=== PATIENT | male | born 1930 | race Caucasian/White ===

== ENCOUNTER → 2016-09-17 | Day surgery (SDC) | payer BC ==
[~2016-09-17] VITALS: Ht 165.1 cm; Wt 81.8 kg
[~2016-09-17] MED LIST: ASPEC81 PO; FINA5TAB PO; FLM4 PO; GLYCOPYRROLATE INJ 0.2 MG/ML VIAL ONE; LIDOCAINE HCL 2% 2 ML VIAL (20MG/ML) ONE; PHENYLEPHRINE 100MCG/ML 5ML SYR ONE; PROPOFOL IV EMULSION 10 MG/ML 20 ML VIAL IV ONE; TELM40TA11 PO; VERA240T20 PO
[2016-09-17 12:36] VITALS: Ht 165.1 cm; Wt 81.8 kg
--- NOTE | 2016-09-17 12:50 | Endo History and Physical ---
History & Physical Date of Service: September 17, 2016. Chief Complaint: HX POLYP Referring Physician: DR AMADOR History of Present Illness For colonoscopy Past Surgical History Hx Cardiac Surgery: Yes (HEART CATH, NO STENTS) Hx Internal Defibrillator: No Hx Pacemaker: No Hx Abdominal Surgery: Yes (HERNIA REPAIR X3, APPY) Hx of Implantable Prosthesis: No Hx Post-Op Nausea and Vomiting: No Hx Cancer Surgery: No Hx Thoracic Surgery: No Hx Orthopedic: No Hx Urinary Tract Surgery: Yes (TURP) Family History None Social History Smoking Status: Never Smoker Hx Substance Use: No Hx Alcohol Use: No Allergies Coded Allergies: Lisinopril (Verified Allergy, Unknown, COUGH, 09/12/16) Beta Adrenergic Blockers (Verified Adverse Reaction, Intermediate, SLOW HEART RATE, 09/12/16) Current Medications Reported Home Medications Medications Dose Route/Sig Max Daily Dose Days Date Category Proscar (Finasteride) 5 Mg Tab 5 Mg PO QAM 05/10/15 Reported Calan Sr Ext Rel (Verapamil HCl) 240 Mg Tabcr 240 Mg PO QAM 05/10/15 Reported Flomax * (Tamsulosin HCl) 0.4 Mg Cap 0.4 Mg PO QAM 12/19/10 Reported Micardis (Telmisartan) 40 Mg Tab 40 Mg PO QAM 12/19/10 Reported Ecotrin Or Generic * (Aspirin) 81 Mg Ectab 81 Mg PO QAM 12/19/10 Reported Vital Signs Weight (Kilograms): 81.82 Height (Feet): 5 Height (Inches): 5 Date Time Temp Pulse Resp B/P Pulse Ox O2 Delivery O2 Flow Rate FiO2 09/17/16 12:35 36.6 80 18 167/79 96 Room Air Physical Exam General Appearance: WD/WN Respiratory/Chest: Respiratory effort: no dyspnea Cardiovascular: Heart Auscultation: RRR Abdomen: Inspection & Palpation: soft Assessment and Plan Hx of polyps for colonoscopy
--- NOTE | 2016-09-17 13:18 | Discharge Instructions ---
Endoscopy Patient Instructions Date / Procedure(s) Performed September 17, 2016. Colonoscopy Allergy Information Coded Allergies: Lisinopril (Verified Allergy, Unknown, COUGH, 09/12/16) Beta Adrenergic Blockers (Verified Adverse Reaction, Intermediate, SLOW HEART RATE, 09/12/16) Discharge Date / Findings September 17, 2016. polyp, diverticulosis Medication Instructions Stopped Medication(s): ASPIRIN LAST DOSE 09/14/16 Restart Stopped Medication(s): resume meds Reported Home Medications Medications Dose Route/Sig Max Daily Dose Days Date Category Proscar (Finasteride) 5 Mg Tab 5 Mg PO QAM 05/10/15 Reported Calan Sr Ext Rel (Verapamil HCl) 240 Mg Tabcr 240 Mg PO QAM 05/10/15 Reported Flomax * (Tamsulosin HCl) 0.4 Mg Cap 0.4 Mg PO QAM 12/19/10 Reported Micardis (Telmisartan) 40 Mg Tab 40 Mg PO QAM 12/19/10 Reported Ecotrin Or Generic * (Aspirin) 81 Mg Ectab 81 Mg PO QAM 12/19/10 Reported Provider Instructions Activity Restrictions - No exercising or heavy lifting for 24 hours. - Do not drink alcohol the day of the procedure. - Do not drive a car or operate machinery until the day after the procedure. - Do not make any important decisions or sign important papers in 24 hours after the procedure. Following Day: - Return to full activity which may include returning to work/school. Diet Start your diet with liquids and light foods (jello, soup, juice, toast). Then eat your usual diet if not nauseated. Treatment For Common After Affects For mild abdominal pain, bloating, or excessive gas: - Rest - Eat lightly - Lie on right side Follow-Up Information Follow-up with DR AMADOR as scheduled Anesthesia Information What You Should Know You have had a procedure that required some medicine to reduce anxiety and discomfort. This treatment is called moderate sedation. After receiving the treatment, you may be sleepy, but you will be able to breathe on your own. The effects of the treatment may last for several hours. Follow these instructions along with Activity/Diet recommendations noted above: * Do NOT do anything where dizziness or clumsiness would be dangerous. * Rest quietly at home today, then you can be up and about tomorrow. * Have a responsible person stay with you the rest of today. * You may have had an I.V. today. If so, you may take the dressing off later today. Recommendations Call your doctor if: * Trouble breathing * Continuous vomiting for more than 24 hours * Temperature above 101 degrees * Severe abdominal pain or bloating * Pain not relieved by pain medicine ordered * There is increased drainage or redness from any incision * A large amount of rectal bleeding greater than 2-3 tablespoons. (If you had a polyp/s removed or have hemorrhoids, a small amount of blood - from the rectum is to be expected.) * You have any unanswered questions or concerns. IN THE EVENT OF A SERIOUS EMERGENCY, GO TO THE NEAREST EMERGENCY ROOM Your discharge instructions were prepared by provider Jamie Weeks. Patient Instructions Signature Page Linus Quintanilla Patient (or Guardian) Signature/Date: I have read and understand the instructions given to me by my caregivers. Caregiver/RN/Doctor Signature/Date: The above-named patient and/or guardian has received patient instructions on this date. + Original Patient Signature Page (only) stays with chart. Please make copy for patient.
--- NOTE | 2016-09-17 13:23 | GI REPORT ---
Procedure Date: 09/17/2016 12:45 PM Procedure: Colonoscopy Indications: Personal history of colonic polyps Medicines: Propofol total dose 150 mg IV, Lidocaine 40 mg IV, Robinul 0.2 mg IV Complications: No immediate complications. Estimated Blood Loss: Estimated blood loss: none. Procedure: Pre-Anesthesia Assessment: - Prior to the procedure, a History and Physical was performed, and patient medications, allergies and sensitivities were reviewed. The patient's tolerance of previous anesthesia was reviewed. - The risks and benefits of the procedure and the sedation options and risks were discussed with the patient. All questions were answered and informed consent was obtained. After I obtained informed consent, the scope was passed under direct vision. Throughout the procedure, the patient's blood pressure, pulse, and oxygen saturations were monitored continuously. The Scope was introduced through the anus and advanced to the cecum, identified by appendiceal orifice and ileocecal valve. The colonoscopy was performed without difficulty. The patient tolerated the procedure well. The quality of the bowel preparation was excellent. Findings: A few diverticula were found in the sigmoid colon. A 8 mm polyp was found in the sigmoid colon. The polyp was pedunculated. The polyp was removed with a hot snare. Resection and retrieval were complete. Estimated blood loss: none. Impression: - Diverticulosis in the sigmoid colon. - One 8 mm polyp in the sigmoid colon, removed with a hot snare. Resected and retrieved. Recommendation: - Discharge patient to home (ambulatory). - Continue present medications. - Await pathology results. - Return to primary care physician HELGAN. Jamie Weeks M.D. Jamie Weeks MD 09/17/2016 1:22:40 PM This report has been signed electronically. Note Initiated On: 09/17/2016 12:45 PM I attest to the content of the Intraoperative Record and orders documented therein, exceptions below
[2016-09-17 13:57] VITALS: BP 158/88; PULSE 83; O2SAT 95
--- NOTE | 2016-09-17 13:57 | Anesthesiology Progress Note ---
Anesthesia Post Op Note Date & Time September 17, 2016 at 13:55 Vital Signs Pain Intensity: 0 Vital Signs Past 12 Hours Date Time Temp Pulse Resp B/P Pulse Ox O2 Delivery O2 Flow Rate FiO2 09/17/16 13:39 88 20 166/89 95 Room Air 09/17/16 13:30 84 20 142/87 94 Room Air 09/17/16 12:35 36.6 80 18 167/79 96 Room Air Notes Mental Status: alert / awake / arousable, participated in evaluation Pt Amnestic to Procedure: Yes Nausea / Vomiting: adequately controlled Pain: adequately controlled Airway Patency, RR, SpO2: stable & adequate BP & HR: stable & adequate Hydration State: stable & adequate Anesthetic Complications: no major complications apparent Pt doing well. He did have some sinus pauses during the procedure. He seems to have high vagal tone. We had to be careful treating this as we didn't want to increase his heart rate too much given his SALLIE w/ dynamic LVOT obstruction, but we did give 0.2 mg glycopyrrolate. Heart rate at baseline, BP stable, and he feels well.
== END | disposition home or self-care (01) ==
LOC: C.GI 12:12
PROVIDERS: ATTEND Internal Medicine Gastroenterology
DX: Z86.010 Personal history of colon polyps (principal); D12.5 Benign neoplasm of sigmoid colon; K57.30 Diverticulosis of large intestine without perforation or abscess without bleeding

== ENCOUNTER → 2017-04-04 | Outpatient (CLI) | payer BC ==
[~2017-04-04] MED LIST changes: -GLYCOPYRROLATE INJ 0.2 MG/ML VIAL ONE; -LIDOCAINE HCL 2% 2 ML VIAL (20MG/ML) ONE; -PHENYLEPHRINE 100MCG/ML 5ML SYR ONE; -PROPOFOL IV EMULSION 10 MG/ML 20 ML VIAL IV ONE
--- NOTE | 2017-04-04 09:45 | DIAGNOSTIC IMAGING REPORT ---
CHEST 2 VIEWS ROUTINE CLINICAL HISTORY: R05,R50.9 dyspnea COMPARISON STUDY: 09/29/2014 FINDINGS: Trace pleural fluid right lateral costophrenic angle. Mild stable cardiomegaly. 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 Lungs otherwise appear clear. No evidence pneumothorax. IMPRESSION: Trace pleural fluid right base. Lungs otherwise appear clear. Permanent bipolar cardiac pacemaker in good position. The above report was generated using voice recognition software. It may contain grammatical, syntax or spelling errors. Electronically signed by: Oniel Beltrán M.D. 04/04/2017 9:43 AM Dictated Date/Time: 04/04/2017 9:42 AM
== END | disposition home or self-care (01) ==
LOC: C.RAD1850 08:53
PROVIDERS: ATTEND Student in an Organized Health Care Education/Training Program
DX: R05 Cough (principal); R50.9 Fever, unspecified

== ENCOUNTER → 2017-06-20 | Outpatient (CLI) | payer BC ==
--- NOTE | 2017-06-20 11:11 | DIAGNOSTIC IMAGING REPORT ---
CHEST 2 VIEWS ROUTINE CLINICAL HISTORY: 86 years-old Male presenting with COUGH. TECHNIQUE: PA and lateral views of the chest were obtained. COMPARISON: 04/04/2017. FINDINGS: Left subclavian pacer with leads to the right atrium and right ventricular apex. Atherosclerosis of the aortic arch. Cardiac silhouette top normal in size. Interval development of a moderate right pleural effusion and right basilar opacity. Left lung and pleural space clear. No pneumothorax. Degenerative changes of the thoracic spine. Upper abdomen normal. IMPRESSION: 1. Interval development of moderate right pleural effusion and likely extensive right basilar atelectasis. Electronically signed by: Karri Olvera M.D. 06/20/2017 11:10 AM Dictated Date/Time: 06/20/2017 11:09 AM
== END | disposition home or self-care (01) ==
LOC: C.RAD 10:41
PROVIDERS: ATTEND Nurse Practitioner
DX: J90 Pleural effusion, not elsewhere classified (principal)

== ENCOUNTER → 2017-09-02 | Outpatient (CLI) | payer BC ==
--- NOTE | 2017-09-02 12:34 | DIAGNOSTIC IMAGING REPORT ---
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 Acute shortness of breath. History of prior lung biopsy. Initial treatment strategy. COMPARISON: Chest radiograph 06/20/2017, chest CT 10/01/2012 TECHNIQUE: The patient was injected with 14.33 mCi of F-18 fluorodeoxyglucose (FDG) and an emission scan was performed from the skull vertex to the toes. Noncontrast CT was performed for attenuation correction and anatomic localization. The blood glucose level was 114 mg/dl. FINDINGS: HEAD AND NECK: Physiologic distribution of activity without hypermetabolic foci. Mildly increased activity within the distribution of the lingual tonsils, left greater than right is likely physiologic. This could be correlated with direct visualization. CHEST: There is diffuse pleural thickening and pleural nodularity throughout the right hemithorax measuring up to at least 6 mm in thickness. Areas of pleural nodularity are seen measuring up to 1.4 cm in length nicely seen on image 67 series 3. There is intensely hypermetabolic activity associated with the pleural thickening and pleural nodularity with SUV max measuring up to 7.7 at the medial right lung apex as seen on image 67 and measuring up to 9.1 at the level of the right lung base posterolaterally on image 104. Trace amount of loculated fluid is also seen within the right hemithorax at the lung base which does not appear to be hypermetabolic. Scattered foci of air noted within the loculated pleural fluid. No hypermetabolic adenopathy identified. ABDOMEN AND PELVIS: There is a physiologic distribution of activity within the liver, spleen, adrenal glands, gastrointestinal and urinary tracts, with no hypermetabolic foci. Nonspecific mildly increased uptake is noted about the scrotum. Correlate with clinical exam. MUSCULOSKELETAL SYSTEM AND EXTREMITIES: There is a physiologic distribution of activity within the bone marrow, with no hypermetabolic foci. ADDITIONAL CT FINDINGS: Left subclavian pacer is noted. Cardiomegaly with small pericardial effusion. Coronary arterial calcifications. Solid noncalcified nodules of the left lung base are again noted measuring up to 3 mm. Calcified granuloma of the left upper lobe as seen on image 70. Linear and groundglass consolidation is seen within the right lower lobe with bronchial wall thickening and areas of mucous plugging. Probable cyst of the interpolar right kidney measures 2.3 cm. Mild nonspecific bilateral perinephric stranding. Moderate calcification of the aorta. No bowel obstruction. Prostamegaly with bladder wall thickening suggesting sequela of chronic bladder outlet obstruction. Colonic diverticulosis without CT evidence of acute diverticulitis. Multilevel degenerative changes about the spine. IMPRESSION: 1. 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 2. Mild degree of loculated air and fluid within the right hemithorax at the level of the right lung base may be post-procedural. Correlate clinically to exclude infectious etiology. 3. No evidence of metastatic disease outside of the right hemithorax. No evidence of pathologic adenopathy. 4. Cardiomegaly with small pericardial effusion. 5. Additional incidental findings as above. The above report was generated using voice recognition software. It may contain grammatical, syntax or spelling errors. Electronically signed by: Ramses Couch M.D. 09/02/2017 12:32 PM Dictated Date/Time: 09/02/2017 12:00 PM
== END | disposition home or self-care (01) ==
LOC: C.PET 06:44
PROVIDERS: ATTEND Internal Medicine Hematology
DX: C45.0 Mesothelioma of pleura (principal)